=== PATIENT | male | born 1985 | race Caucasian/White ===

== ENCOUNTER 2018-05-03 17:50 | Emergency (ER) | payer MEDICAID ==
[~2018-05-03] VITALS: Ht 167.6 cm; Wt 86.0 kg
[2018-05-03 20:30] LABS: CLARITY URINE CLEAR (CLEAR); COLOR URINE YELLOW (YELLOW); KETONES URINE NEGATIVE (NEGATIVE); LEUKOCYTE ESTERASE URINE NEGATIVE (NEGATIVE); NITRITE URINE NEGATIVE (NEGATIVE); OCCULT BLOOD URINE NEGATIVE (NEGATIVE); PH URINE 5.5 (4.5-8.0); PROTEIN URINE NEGATIVE (NEGATIVE); SPECIFIC GRAVITY URINE 1.029 (1.005-1.030); UROBILINOGEN URINE 0.2 E.U./dL (0.2-1.0)
[2018-05-03 20:45] VITALS: BP 144/90
[2018-05-03] MEDS ORDERED: KETOROLAC 60MG/2ML VIAL IM ONE (20:45)
== END 2018-05-03 21:45 | disposition home or self-care (01) ==
LOC: ER 19:51
DX: M54.5 Low back pain (principal)
CPT/HCPCS: 72100; 81003; 96372; 99285; J1885

== ENCOUNTER 2019-08-31 20:50 | Emergency (ER) | payer MEDICAID, OTHER ==
[~2019-08-31] VITALS: Ht 172.7 cm; Wt 96.0 kg
[2019-08-31 23:15] VITALS: BP 134/75
== END 2019-08-31 23:15 | disposition home or self-care (01) ==
LOC: ER 20:50
DX: J11.1 Influenza due to unidentified influenza virus with other respiratory manifestations (principal)
CPT/HCPCS: 99283

== ENCOUNTER 2019-11-14 08:00 | Emergency (ER) | payer OTHER ==
[~2019-11-14] VITALS: Ht 172.7 cm; Wt 109.0 kg
[2019-11-14 08:45] VITALS: BP 149/89
[2019-11-14] MEDS ORDERED: KETOROLAC 30MG/ML VIAL IM ONE (08:45)
== END 2019-11-14 08:52 | disposition home or self-care (01) ==
LOC: ER 08:00
DX: M62.830 Muscle spasm of back (principal); R03.0 Elevated blood-pressure reading, without diagnosis of hypertension
CPT/HCPCS: 96372; 99283; J1885

== ENCOUNTER 2019-11-15 09:06 | Emergency (ER) | payer OTHER ==
[~2019-11-15] VITALS: Ht 172.7 cm; Wt 97.0 kg
[2019-11-15] MEDS ORDERED: MORPHINE SULFATE 4 MG/ML CPJ (NOT FOR IM USE) IV ONE (10:30)
[2019-11-15 10:40] LABS: BASOPHILS % 0.5 % (0.0-2.0); EOSINOPHILS % 2.7 % (0.0-5.0); HEMATOCRIT. 45.8 % (42.0-52.0); HEMOGLOBIN. 16.1 g/dL (14.0-18.0); LYMPHOCYTES % 37.4 % (20.0-50.0); MEAN CORPUSCULAR HEMOGLOBIN 30.6 pg (28.0-32.0); MEAN CORPUSCULAR VOLUME 87.2 fL (80.0-94.0); MONOCYTES % 6.1 % (2.0-8.0); NEUTROPHILS % 53.3 % (40.0-76.0); PLATELET 233 x1000/uL (130-400); RED BLOOD CELL COUNT 5.25 mill/uL (4.7-6.1)
[2019-11-15 10:47] LABS: CHLORIDE 106 mEq/L (98-107)
[2019-11-15 10:59] LABS: CLARITY URINE CLEAR (CLEAR); COLOR URINE YELLOW (YELLOW); KETONES URINE NEGATIVE (NEGATIVE); LEUKOCYTE ESTERASE URINE NEGATIVE (NEGATIVE); NITRITE URINE NEGATIVE (NEGATIVE); OCCULT BLOOD URINE NEGATIVE (NEGATIVE); PH URINE 6.5 (4.5-8.0); PROTEIN URINE NEGATIVE (NEGATIVE); SPECIFIC GRAVITY URINE 1.024 (1.005-1.030); UROBILINOGEN URINE 0.2 E.U./dL (0.2-1.0)
[2019-11-15] MEDS ORDERED: IOHEXOL-300 100 ML BOTTLE ONE (11:53)
[2019-11-15 14:39] VITALS: BP 129/89
== END 2019-11-15 14:40 | disposition home or self-care (01) ==
LOC: ER 09:06
DX: M54.5 Low back pain (principal); R10.32 Left lower quadrant pain; E78.00 Pure hypercholesterolemia, unspecified
CPT/HCPCS: 36415; 74177; 80053; 81003; 83690; 85025; 96374; 99285; J2270; Q9967

== ENCOUNTER 2021-01-04 21:57 | Emergency (ER) | payer MEDICAID, OTHER ==
[~2021-01-04] VITALS: Ht 170.2 cm; Wt 96.0 kg
[2021-01-05] MEDS ORDERED: KETOROLAC 60MG/2ML VIAL IM ONE (01:00)
[2021-01-05] MEDS ORDERED: NAPR-681 MT (02:14)
[2021-01-05 02:55] VITALS: BP 148/76
== END 2021-01-05 03:31 | disposition home or self-care (01) ==
LOC: ER 21:57
DX: S39.012A Strain of muscle, fascia and tendon of lower back, initial encounter (principal); V49.59XA Passenger injured in collision with other motor vehicles in traffic accident, initial encounter; Y93.89 Activity, other specified; Y92.89 Other specified places as the place of occurrence of the external cause; Y99.8 Other external cause status
CPT/HCPCS: 96372; 99283; J1885

== ENCOUNTER 2021-12-03 19:02 | Emergency (ER) | payer MEDICAID, OTHER ==
[~2021-12-03] VITALS: Ht 172.7 cm; Wt 96.0 kg
[~2021-12-03 19:02] MED LIST: NAPR-681 MT
[2021-12-03] MEDS ORDERED: KETOROLAC 60MG/2ML VIAL IM ONE (20:00)
[2021-12-03 20:05] VITALS: BP 185/116
[2021-12-03] MEDS ORDERED: GABA-532 MT (20:26)
[2021-12-03] MEDS ORDERED: IBUP-2029 MT (20:26)
== END 2021-12-03 20:32 | disposition home or self-care (01) ==
LOC: ER 19:02
DX: M54.50 Low back pain, unspecified (principal)
CPT/HCPCS: 96372; 99283; J1885

== ENCOUNTER 2022-06-11 18:13 | Emergency (ER) | payer MEDICAID, OTHER ==
[~2022-06-11] VITALS: Ht 175.3 cm; Wt 89.0 kg
[~2022-06-11 18:13] MED LIST changes: +GABA-532 MT; +IBUP-2029 MT
[2022-06-11] MEDS ORDERED: IBUPROFEN 800MG TABLET PO ONE (19:00)
[2022-06-11] MEDS ORDERED: IBUP-2030 MT (19:35)
[2022-06-11 20:10] VITALS: BP 124/78
== END 2022-06-11 20:11 | disposition home or self-care (01) ==
LOC: ER 18:13
DX: S89.82XA Other specified injuries of left lower leg, initial encounter (principal); R26.2 Difficulty in walking, not elsewhere classified; R03.0 Elevated blood-pressure reading, without diagnosis of hypertension; X58.XXXA Exposure to other specified factors, initial encounter; Y93.89 Activity, other specified; Y92.89 Other specified places as the place of occurrence of the external cause
CPT/HCPCS: 73562; 99283; L1830

== ENCOUNTER 2023-06-12 17:46 | Emergency (ER) | payer MEDICAID ==
[~2023-06-12] VITALS: Ht 172.7 cm; Wt 98.0 kg
[~2023-06-12 17:46] MED LIST changes: +IBUP-2030 MT
[2023-06-12 17:54] VITALS: BP 160/107; PULSE 87; RESP 16; TEMP 97.8; O2SAT 100
[2023-06-12] MEDS ORDERED: NAPR-681 MT (18:38)
[2023-06-12] MEDS ORDERED: POLY17PO3 MT (18:39)
[2023-06-13] MEDS ORDERED: METH-653 MT (20:11)
[2023-06-13] MEDS ORDERED: LIDO700A15 TP (20:11)
== END 2023-06-12 19:52 | disposition home or self-care (01) ==
LOC: ER 17:51
DX: K59.00 Constipation, unspecified (principal); M19.90 Unspecified osteoarthritis, unspecified site; M54.50 Low back pain, unspecified
CPT/HCPCS: 99282

== ENCOUNTER 2024-03-18 20:29 | Emergency (ER) | payer MEDICAID, OTHER ==
[~2024-03-18] VITALS: Ht 175.3 cm; Wt 97.5 kg
[~2024-03-18 20:29] MED LIST changes: +LIDO700A15 TP; +METH-653 MT; +POLY17PO3 MT
[2024-03-18 21:33] VITALS: BP 155/105; PULSE 79; RESP 18; TEMP 98.4; O2SAT 98
== END 2024-03-19 01:43 | disposition left against medical advice (07) ==
LOC: ER 20:29
DX: M25.511 Pain in right shoulder (principal); Z53.21 Procedure and treatment not carried out due to patient leaving prior to being seen by health care provider